=== PATIENT | female | born 1955 | race Caucasian/White ===

== ENCOUNTER 2017-04-23 09:24 | Inpatient (IN) ==
--- NOTE | 2017-04-22 21:52 | Discharge Summary ---
<UrbanoMehnaz mccrackenGrazyna L - Last Filed: 04/23/17 09:04> Date of Encounter: 04/23/17 - Discharge Diagnosis (1) Status post total knee replacement, right Priority: Primary Status: Acute (2) Arthritis of knee, right Priority: Primary Status: Acute (3) Chronic pain Priority: Secondary Status: Chronic Comments: Holding Percocet 10/325mg - takes TID - LD: 03/29/17 Qualifiers: Chronic pain type: other chronic pain Qualified Code(s): G89.29 - Other chronic pain (4) CKD (chronic kidney disease) stage 3, GFR 30-59 ml/min Priority: Secondary Status: Chronic (5) COPD (chronic obstructive pulmonary disease) Priority: Secondary Status: Chronic Qualifiers: COPD type: unspecified COPD Qualified Code(s): J44.9 - Chronic obstructive pulmonary disease, unspecified (6) DMII (diabetes mellitus, type 2) Priority: Secondary Status: Chronic Qualifiers: Diabetes mellitus complication status: without complication Diabetes mellitus terminal worker insulin use: unspecified penitentiary insulin use status Qualified Code(s): E11.9 - Type 2 diabetes mellitus without complications (7) HTN (hypertension) Priority: Secondary Status: Chronic Qualifiers: Hypertension type: essential hypertension Qualified Code(s): I10 - Essential (primary) hypertension (8) Obesity Priority: Secondary Status: Chronic Qualifiers: Obesity type: due to excess calories Obesity classification: unspecified obesity classification Serious obesity comorbidity presence: without serious comorbidity Qualified Code(s): E66.09 - Other obesity due to excess calories - Hospital Course Hospital course: Ms. Mclaughlin is a 61 year old female - Time Spent with Patient Total time spent providing and/or coordinating discharge services: - Discharge Medications Home Medications: OxyCODONE Immed Rel [Roxicodone 5 MG] 5 mg PO Q6HR PRN 7 Days #28 tablet [Rx] Albuterol Sulfate [Albuterol Inhaler] 2 puff IH Q4-6H PRN 04/23/17 [History] Aspirin Enteric Coated [Aspirin EC] 325 mg PO BID #20 tablet. 04/23/17 [Rx] Calcium Carbonate [Calcium] 600 mg PO DAILY 04/23/17 [History] Cholecalciferol (Vitamin D3) [Vitamin D3] 2,000 unit PO DAILY 04/23/17 [History] Fluticasone Propionate Nasal [Flonase] 2 spr NS DAILY PRN 04/23/17 [History] Montelukast [Singulair] 10 mg PO HS 04/23/17 [History] [place]-3S/Dha/Epa/Fish Oil [Fish Oil 1,200 mg Softgel] 1 cap PO DAILY 04/23/17 [ History] OxyCODONE/APAP 10/325 [Percocet 10/325 MG] 1 tab PO Q8H PRN 04/23/17 [History] Pantoprazole Sodium [Protonix] 40 mg PO DAILY 04/23/17 [History] Psyllium [Metamucil Fiber Singles Packet] 1 pack PO DAILY 04/23/17 [History] Sertraline [Zoloft] 100 mg PO DAILY 04/23/17 [History] Simvastatin [Zocor] 40 mg PO DAILY 04/23/17 [History] Tiotropium [Spiriva] 18 mcg PO DAILY 04/23/17 [History] Venlafaxine HCl [Venlafaxine HCl ER] 75 mg PO DAILY 04/23/17 [History] Vitamin B Complex Vit C No.4 [Super B Complex] 150 mg PO DAILY 04/23/17 [History ] diazePAM [Valium] 5 mg PO BID PRN 04/23/17 [History] Allergies/Adverse Reactions: 3 Allergy/AdvReac Type Severity Reaction Status Date / Time cephalexin Allergy Rash Verified 04/23/17 10:10 Penicillins [PCN] Allergy Rash Verified 04/23/17 10:10 Sulfa (Sulfonamide Allergy Rash Verified 04/23/17 10:10 Antibiotics) hydrocodone [From Vicodin] AdvReac Hallucinati Verified 04/23/17 10:10 ng Varenicline [From Chantix] AdvReac Gastrointestinal Verified 04/23/17 10:10 Upset Primary care physician: Adam Evans CNP - Patient Status Disposition: Home Health Service Condition: Good - Discharge Instructions Follow Up With: Adam Evans CNP [Primary Care Provider] - <Sharan Lakhani - Last Filed: 04/25/17 06:45> Date of Encounter: 04/25/17 Time of Encounter: 06:44 - Discharge Diagnosis (1) Morbid obesity with BMI of 40.0-44.9, adult Priority: Secondary Status: Chronic (2) Chronic pain Priority: Secondary Status: Chronic Qualifiers: Chronic pain type: other chronic pain Qualified Code(s): G89.29 - Other chronic pain (3) CKD (chronic kidney disease) stage 3, GFR 30-59 ml/min Priority: Secondary Status: Chronic (4) COPD (chronic obstructive pulmonary disease) Priority: Secondary Status: Chronic Qualifiers: COPD type: unspecified COPD Qualified Code(s): J44.9 - Chronic obstructive pulmonary disease, unspecified (5) DMII (diabetes mellitus, type 2) Priority: Secondary Status: Chronic Qualifiers: Diabetes mellitus complication status: without complication Diabetes mellitus terminal worker insulin use: unspecified penitentiary insulin use status Qualified Code(s): E11.9 - Type 2 diabetes mellitus without complications (6) HTN (hypertension) Priority: Secondary Status: Chronic Qualifiers: Hypertension type: essential hypertension Qualified Code(s): I10 - Essential (primary) hypertension (7) Loose total knee arthroplasty Priority: Secondary Status: Chronic Comments: Medial unicondylar right Qualifiers: Encounter type: subsequent encounter Qualified Code(s): T84.038D - Mechanical loosening of other internal prosthetic joint, subsequent encounter; Z96.659 - Presence of unspecified artificial knee joint; Z96.659 - Presence of unspecified artificial knee joint (8) Arthritis of knee, right Priority: Primary Status: Chronic - Hospital Course Hospital course: Ms. Mclaughlin is a 61 year old female Status post revision total knee replacement Patient with some postoperative hypertension doing well, The patient had an uneventful postoperative course. They received antibiotics and physical therapy and were discharged in stable condition. There will follow -up in the office in 2 weeks. - Time Spent with Patient Total time spent providing and/or coordinating discharge services: Primary care physician: Adam Evans CNP - Patient Status Functional capacity at discharge: uses cane/walker Overall status at discharge: patient is progressing back to baseline
--- NOTE | 2017-04-23 09:42 | History & Physical Report ---
Date of Encounter: 04/23/17 Time of Encounter: 09:42 24 Hour HP Update - Instructions Instructions: If the History and Physical is less than 30 days old and was completed prior to A.M. admission and or procedure and has NOT been updated on calendar day of procedure please complete this update prior to performing procedure. - Update Patient reports changes in Medical Condition: No Changes in examination, assessment, or condition: No Changes in Medication: No Preop tests/diagnostics Reviewed: Yes Surgery Remains Indicated: Yes Consent for Planned Operative Procedure(s) Verified: Yes - Pre-Operative Checklist Preoperative Checklist Indicated: No Prophylactic Antibiotic Ordered: Yes Is VTE Prophylaxis Indicated?: Yes
[2017-04-23] MEDS ORDERED: Ketorolac 30 MG/ML VIAL ONE (09:43)
[2017-04-23] MEDS ORDERED: *HR* Midazolam HCl 2 MG/2 ML VIAL ONE (09:43)
[2017-04-23] MEDS ORDERED: Lidocaine -MPF 2% 2 ML VIAL ONE (09:43)
[2017-04-23] MEDS ORDERED: *HR* Propofol 200 MG/20 ML VIAL IVP ONE (09:43)
[2017-04-23] MEDS ORDERED: Propofol 500 MG/50 ML INFUS..BTL ONE (09:43)
[2017-04-23] MEDS ORDERED: *HR* FentaNYL (PF) 100 MCG/2 ML VIAL ONE ×2 (09:43)
[2017-04-23] MEDS ORDERED: Clindamycin 900 MG/50 ML 900 MG/50 ML IV.SOLN IVPB ONE (09:46)
[2017-04-23] MEDS ORDERED: Albuterol 2.5 MG/3 ML NEBULIZER IH ONE (09:46)
[2017-04-23] MEDS ORDERED: Plasma-Lyte A (PH 7.4) 1,000 ML IVC SCH (10:00)
--- NOTE | 2017-04-23 10:03 | Anesthesia Evaluation PreOp ---
Date of Encounter: 04/23/17 Time of Encounter: 10:01 - Past History Planned Operation: R TKA revision unicondylar to total Cardiac History: HTN Pulmonary History: COPD (not on O2, no recent exacerbations), ADAIR Dx (does not use CPAP due to claustrophobia) Other Medical History: Renal (CKD III), Diabetes Type II Anesthesia History: No Prior Anesthetic Complications, Past Anesthesia (RTKA, hysterectomy, lumpectomy, CTR, ulnar nn transposition) Alcohol Use: none Drug use: none Medications and Allergies OxyCODONE Immed Rel [Roxicodone 5 MG] 5 mg PO Q6HR PRN 7 Days #28 tablet [Rx] Aspirin Enteric Coated [Aspirin EC] 325 mg PO BID #20 tablet. 04/23/17 [Rx] 3 Allergy/AdvReac Type Severity Reaction Status Date / Time cephalexin Allergy Rash Verified 04/23/17 10:10 Penicillins [PCN] Allergy Rash Verified 04/23/17 10:10 Sulfa (Sulfonamide Allergy Rash Verified 04/23/17 10:10 Antibiotics) hydrocodone [From Vicodin] AdvReac Hallucinati Verified 04/23/17 10:10 ng Varenicline [From Chantix] AdvReac Gastrointestinal Verified 04/23/17 10:10 Upset - Meds/Allergy Pre-op Review Medications Reviewed: Yes Allergies Reviewed: Yes Beta Blockers on Current Med List: No Anesthesia Results - Labs Laboratory Tests 03/29/17 03/29/17 03/29/17 15:02 15:02 15:02 WBC 8.0 Hgb 13.2 Hct 41.3 Plt Count 305 PT INR APTT Sodium 141 Potassium 3.9 Chloride 103 Carbon Dioxide 26 BUN 16 Creatinine 1.04 Glucose 99 Est Mean Plasma Glucose 131 Hemoglobin A1c 6.2 H 04/09/17 12:39 WBC Hgb Hct Plt Count PT 11.9 INR 1.1 APTT 30.4 Sodium Potassium Chloride Carbon Dioxide BUN Creatinine Glucose Est Mean Plasma Glucose Hemoglobin A1c - Imaging EKG: report reviewed (SINUS RHYTHM NONSPECIFIC ST & T-WAVE ABNORMALITY Electronically Signed On 04-11-2017 9:05:58 EST by Juan Manuel Rizvi MD) Anesthesia Exam O2 Sat Height 1.65 m Height 1.65 m Height 1.65 m Weight 109.769 kg Weight 109.769 kg Weight 109.769 kg O2 Sat by Pulse Oximetry 93 O2 Sat by Pulse Oximetry 93 Vital Signs Temp Pulse Resp BP Pulse Ox 97.6 F 91 18 169/90 93 04/23/17 09:43 04/23/17 09:43 04/23/17 09:43 04/23/17 09:43 04/23/17 09:43 Height: 65" Weight: 242lbs NPO (# of Hours): >8 - HEENT Pupil (Motor): Pupils equal, EOMI Mallampati: III Teeth: Edentulous (upper) Denture Type: Upper: Complete, Lower: Partial Oral Opening: Greater than 3 - BINDER OPERATOR LOC: Oriented BINDER OPERATOR Motor: Normal RUE, Normal LUE, Normal RLE, Normal LLE, Normal Face BINDER OPERATOR Sensory: Normal: RUE, LUE, RLE, LLE, Face - Cardiac Rhythm: Regular - Pulmonary Breath Sounds: bilateral Clear Respiratory Effort: Symmetrical Anesthesia Assess/Plan ASA Score: 3 (HTN, COPD, stage II CKD, DM) Modified Keron Scale for Level of Consciousness: Cooperative, oriented, and tranquil Anesthetic Plan: General, Regional (Femoral nn block, pt refuses spinal) Monitoring Plan: Standard Monitors Recovery Plan: PACU
[2017-04-23] MEDS ORDERED: Ethanol\\Acetic Acid\\Na Ace\\Ben 1,000 ML IRRIG.SOLN IR ONE (10:06)
[2017-04-23] MEDS ORDERED: Acetaminophen IV 1,000 MG/100 ML INFUS..BTL IVPB ONE (10:17)
[2017-04-23] MEDS ORDERED: Lidocaine/EPI 1:100k 1% 20 ML VIAL ONE (10:36)
[2017-04-23] MEDS ORDERED: *HR* Ropivacaine/PF 0.5% 20 ML VIAL ONE (10:36)
[2017-04-23] MEDS ORDERED: Ketamine *HR* 500 MG/10 ML MDV ONE (11:45)
[2017-04-23] MEDS ORDERED: Dexamethasone 4 MG/ML VIAL ONE (12:01)
[2017-04-23] MEDS ORDERED: Ondansetron 4 MG/2 ML VIAL ONE (12:01)
--- NOTE | 2017-04-23 12:08 | Anesthesia Procedures ---
Date of Encounter: 04/23/17 Time of Encounter: 11:00 Procedures: Anesthesia - Nerve Block Procedure Date: 04/23/17 Time: 11:00 Allergies/Adv Reactions: MULTIPLE SEE CHART Pre-op Diagnosis: RIGHT KNEE ARTHRITIS Surgical Procedure: RIGHT KNEE ARTHROPLASTY Checklist: Correct Patient Identifier, Correct procedure, History checked Correct side: Right Blood Thinner: No Monitor Applied: EKG, BP, Pulse Oximetry Supplemental Oxygen via Nasal Cannula (L/min): 2 Sedation: Versed (mg): 2 Sedation: Fentanyl (mcg): 100 Indication: Post Op Analgesia Pre-op Neuro Deficits: No Block Type: Femoral (IPACK ) Catheter placed: No Sterile Technique: Yes Ultrasound used: Yes Anatomy identified: Yes Visual spread of Local: Yes Neuro Stimulation: Yes Nerve Stimulator Range: 0.2 - 0.4 mA Blood on Needle Aspiration: No Smooth Injection of Local: Yes Pain with Injection of Local: No Prep: Chlorhexadine Needle: 22 x 50 mm Stimuplex, 21 x 100 mm Stimuplex Local: Ropivacaine (0.5% WITH 8MG DECADRON FEMORAL 30ML ), Other (BUPIV 0.25% 30ML WITH 8MG DECADRON ) Volume (cc): 60 Number of Attempts: 1 Complications: None/effective block Vitals: Vital Signs - Last 8 Hours Temp Pulse Resp BP Pulse Ox 04/23/17 11:31 100 18 149/81 96 04/23/17 11:20 95 18 148/86 95 04/23/17 11:05 97 20 155/94 96 04/23/17 10:50 90 20 160/91 95 04/23/17 09:49 97.6 F 91 18 169/90 93 04/23/17 09:43 97.6 F 91 18 169/90 93 Intake and Output 04/22/17 04/23/17 04/23/17 23:59 07:59 15:59 Other: Weight 109.769 kg Patient Weight 04/23/17 23:59 Weight 109.769 kg Comments: PER DR. MCCLELLAN REQUEST
[2017-04-23] MEDS ORDERED: *HR* Promethazine 25 MG/ML VIAL IVP PRN (12:09)
[2017-04-23] MEDS ORDERED: *HR* HYDROmorphone (PF) 1 MG/ML SYRINGE IVP PRN (12:09)
[2017-04-23] MEDS ORDERED: MORPHINE SUL Oral CONC 10 MG/0.5 ML ORAL.SYG SL PRN (12:09)
--- NOTE | 2017-04-23 12:19 | Orthopedic Operative Note ---
Date of procedure: 04/23/17 Pre-op diagnosis: Right knee arthritis/loose unicondylar knee replacement Post-op diagnosis: same Procedure: Procedure: Right Removal of unicondylar knee replacement right revision total knee replacement Estimated blood loss: 500 cc Hardware: Arthrex metal and plastic replacement: Femur 5, tibia: 6, poly-: PS 18 , patella: 34 Exam Under anesthesia: Full range of motion and no gross instability. Procedural Notes: Grade 3 arthritic changes patellofemoral joint lateral compartment. Loose unicondylar knee replacement Operative procedure: The patient was brought to the operating room and placed on the operating room table. After general anesthesia was administered the operative knee was examined. Findings were noted in the exam under anesthesia. The operative extremity was prepped and draped in sterile surgical fashion. The patient received IV antibiotics prior to skin incision. A standard midline incision was made centered over the patella. The incision was made through the skin and subcutaneous tissue. It incorporated the old incision. A medial parapatellar tendon approach was performed. Care was taken to preserve tissue along the medial aspect of the patella. And to protect the patella tendon. The deep MCL was released off the medial tibia. The infra patella fat pad was excised. Cultures were obtained. The knee was brought into flexion the patient was noted to have grade 3 changes lateral compartment and patellofemoral joint. The patient and all poly-tibia, femoral component was removed it was very loose. The tibial component was also removed without significant bone loss is was also loose. The entry holes made for intramedullary femoral guide guide was seated in 5 degrees of valgus distal cut was made. ACL PCL lateral meniscus were removed and the entry hole was made for the intramedullary tibial guide guide was seated to resect at the level of the medial cut. The knee was brought into flexion femur sized to a size 5 cutting guide was seated anterior cut was made followed by the posterior condylar cuts followed by chamfer cuts. The finishing block was seated box cut was made lug holes drilled. Tibia was subluxed out sized to a size 6 for tray was seated in appropriate position prepared with the large drill followed by the fin cutter trial reduction revealed full extension no varus valgus instability with a 18PS [place]. The patella was everted patella cut was made all the insertions of the quadriceps and patella tendon patella sized to 34, 34 guide was seated lug holes are drilled. The trial components were removed. The knee is irrigated with pulse irrigation. Tibia cemented first followed by the femur the 18 PS [place] was seated and secured, the knee was brought into extension patella was cemented and held in place with patellar holding clamp. After the cement hardened the knee was irrigated out again after it sat for 1 minutes with a antibacterial solution. The knee was closed by the PA. The extensor mechanism was closed with a running #2 Fiberwire suture and a running # 2 PDS suture. The deep tissue was irrigated and closed deep with #1 PDS suture superficially with 0 PDS suture. The skin was closed with skin jennifer. The patient was placed in a sterile dressing and postoperative brace. They were extubated and transferred to recovery room in stable condition. Anesthesia: GETA Surgeon: Sharan Lakhani Was there an medical support assistant present: Yes Principal Secretary: Grazyna Varma Estimated blood loss (cc): 500 Condition: stable Disposition: PACU
[2017-04-23] MEDS ORDERED: MOM Conc 10 ML UD.LIQ PO PRN (13:35)
[2017-04-23] MEDS ORDERED: Naloxone 0.4 MG/ML INJ IVP PRN (13:35)
[2017-04-23] MEDS ORDERED: Dextrose Gel 15 GM/37.5 ML TUBE PO PRN ×2 (13:35)
[2017-04-23] MEDS ORDERED: diazePAM 5 MG TABLET PO PRN (13:35)
[2017-04-23] MEDS ORDERED: Temazepam 15 MG CAPSULE PO PRN (13:35)
[2017-04-23] MEDS ORDERED: D5% in Water 1,000 ML IVC PRN (13:35)
[2017-04-23] MEDS ORDERED: *HR* Dextrose 50 % in Water (Syg) 50 ML SYRINGE IVP PRN (13:35)
[2017-04-23] MEDS ORDERED: Sennosides 8.6 MG TABLET PO PRN (13:35)
[2017-04-23] MEDS ORDERED: Fluticasone Propionate Nasal 50 MCG/SPRAY BOTTLE NS PRN (13:35)
[2017-04-23] MEDS ORDERED: Ondansetron 4 MG/2 ML VIAL IVP PRN (13:35)
[2017-04-23 14:01] LABS: Hematocrit 38.2 % (35.3-44.9)
--- NOTE | 2017-04-23 14:47 | Anesthesia Evaluation Post Op ---
Date of Encounter: 04/23/17 Time of Encounter: 13:15 - Vital Signs Vital Signs: Vital Signs/O2 Sat, Most Current Temp Pulse Resp BP Pulse Ox 98 F 90 16 147/98 98 04/23/17 14:42 04/23/17 14:42 04/23/17 14:42 04/23/17 14:42 04/23/17 14:42 - Lungs Lungs: Clear Ascult./Percussion - Airway Airway: Non-obstructed - Cardiovascular Regular Rate - Mental Status Mental Status: Alert & Oriented, Answers Appropriately - Pain Pain Scale: 2 Pain Scale used: Numeric (1 - 10) - Nausea Vomiting Nausea Vomiting: Not Present - Hydration Hydration: Ice chips - Discharge PostOp Status: Transfer Patient to floor
[2017-04-23] MEDS ORDERED: *HR* Enoxaparin 30 MG/0.3 ML SYRINGE SQ SCH (18:00)
[2017-04-23] MEDS: *HR* Enoxaparin 30 MG/0.3 ML SYRINGE SQ SCH (19:40)
[2017-04-23] MEDS: Insulin LISPRO 300 UNITS/3 ML VIAL SQ SCH ×2 (19:40→20:50)
[2017-04-23] MEDS: Ringers Solution, Lactated 1,000 ML IVC SCH (20:39)
[2017-04-23] MEDS: *HR* OxyCODONE Immed Rel 5 MG TABLET PO PRN (20:40)
[2017-04-23] MEDS: Clindamycin 900 MG/50 ML 900 MG/50 ML IV.SOLN IVPB SCH (20:40)
[2017-04-24] MEDS: *HR* OxyCODONE Immed Rel 5 MG TABLET PO PRN ×5 (04:54→22:08)
[2017-04-24 05:03] LABS: Hematocrit 32.5 % (35.3-44.9)
[2017-04-24 05:08] LABS: Hemoglobin 10.4 g/dL (11.5-15.4)
[2017-04-24] MEDS: Clindamycin 900 MG/50 ML 900 MG/50 ML IV.SOLN IVPB SCH (05:15)
[2017-04-24 05:22] LABS: Calcium 9.1 mg/dL (8.6-10.3); Potassium 4.9 mEq/L (3.5-5.1)
--- NOTE | 2017-04-24 06:24 | Orthopedics Progress Note ---
Date of Encounter: 04/24/17 Time of Encounter: 06:23 - Assessment and Plan (1) Morbid obesity with BMI of 40.0-44.9, adult Current Visit: Yes Status: Chronic (2) Chronic pain Current Visit: No Status: Chronic Qualifiers: Chronic pain type: other chronic pain Qualified Code(s): G89.29 - Other chronic pain (3) CKD (chronic kidney disease) stage 3, GFR 30-59 ml/min Current Visit: No Status: Chronic (4) COPD (chronic obstructive pulmonary disease) Current Visit: No Status: Chronic Qualifiers: COPD type: unspecified COPD Qualified Code(s): J44.9 - Chronic obstructive pulmonary disease, unspecified (5) DMII (diabetes mellitus, type 2) Current Visit: No Status: Chronic Qualifiers: Diabetes mellitus complication status: without complication Diabetes mellitus long-term insulin use: unspecified terminal block assembler insulin use status Qualified Code(s): E11.9 - Type 2 diabetes mellitus without complications (6) HTN (hypertension) Current Visit: No Status: Chronic Qualifiers: Hypertension type: essential hypertension Qualified Code(s): I10 - Essential (primary) hypertension (7) Loose total knee arthroplasty Current Visit: Yes Status: Chronic Qualifiers: Encounter type: subsequent encounter Qualified Code(s): T84.038D - Mechanical loosening of other internal prosthetic joint, subsequent encounter; Z96.659 - Presence of unspecified artificial knee joint; Z96.659 - Presence of unspecified artificial knee joint (8) Arthritis of knee, right Current Visit: No Status: Chronic Subjective Interval history: Patient was seen this morning doing well without complaints. Afebrile vital signs stable. Operative extremity: Neurovascularly intact Dressing clean dry and intact Calves nontender Assessment and plan: Continue with postoperative care Hematocrit 32 Objective Vital signs: Vital Signs Temp Pulse Resp BP Pulse Ox 04/24/17 03:45 97.7 F 85 18 135/80 97 04/24/17 00:15 97.4 F L 88 18 138/78 97 04/23/17 20:06 97.6 F 86 18 132/79 97 04/23/17 16:00 98.7 F 91 18 138/84 95 04/23/17 14:42 98 F 90 16 147/98 98 04/23/17 13:54 97 F L 90 16 151/71 95 04/23/17 13:49 93 04/23/17 13:35 97.2 F L 106 16 149/84 95 04/23/17 13:21 97.9 F 110 16 153/90 94 04/23/17 13:11 115 16 144/84 94 04/23/17 13:01 119 14 148/86 94 04/23/17 12:51 97 F L 115 16 144/88 90 04/23/17 11:31 100 18 149/81 96 04/23/17 11:20 95 18 148/86 95 04/23/17 11:05 97 20 155/94 96 04/23/17 10:50 90 20 160/91 95 04/23/17 09:49 97.6 F 91 18 169/90 93 04/23/17 09:43 97.6 F 91 18 169/90 93 Intake and Output 04/23/17 04/23/17 04/24/17 15:59 23:59 07:59 Intake Total 490 / 490 Output Total 500 / 500 300 / 300 1300 / 1300 Balance -500 / -500 190 / 190 -1300 / -1300 Intake: IV Fluids 50 / 50 Cleocin Premix 900 MG/50 ML 900 50 / 50 mg In 50 ml @ 50 mls/hr IVPB Q8H [facility] Rx#:[id number] Oral 440 / 440 Output: Urine 300 / 300 1300 / 1300 Estimated Blood Loss 500 / 500 Other: Meal Dinner Percent of Meal Consumed 75% Weight 109.769 kg Blood Glucose* 125 264 - Labs CBC & BMP: 04/24/17 04:47 04/24/17 04:47 Labs: Abnormal lab results Hgb 10.4 g/dL (11.5-15.4) L D 04/24/17 04:47 Hct 32.5 % (35.3-44.9) L 04/24/17 04:47 BUN 26 mg/dL (8-23) H 04/24/17 04:47 Creatinine 1.22 mg/dL (0.60-1.20) H 04/24/17 04:47 Est GFR ( Amer) 54 (> 60) L 04/24/17 04:47 Est GFR (Non-Af Amer) 45 (> 60) L 04/24/17 04:47 Glucose 196 mg/dL (70-105) H 04/24/17 04:47 POC Glucose 264 (58-89) H 04/23/17 20:02 - VTE Documentation of Mechanical Device: Venous foot pump, device Consult Discharge Plan - Plan Referrals: Adam Evans CNP [Primary Care Provider] -
[2017-04-24] MEDS: Venlafaxine XR (24 HR) 75 MG CAP.ER.24H PO SCH (07:38)
[2017-04-24] MEDS: Vitamin B Complex/Vit C/Vit E 1 EACH TABLET PO SCH (07:38)
[2017-04-24] MEDS: Insulin LISPRO 300 UNITS/3 ML VIAL SQ SCH ×4 (07:38→22:23)
[2017-04-24] MEDS: *HR* Enoxaparin 30 MG/0.3 ML SYRINGE SQ SCH ×2 (07:39→17:56)
[2017-04-24] MEDS: Cholecalciferol (D-3) 1,000 UNIT TABLET PO SCH (07:39)
[2017-04-24] MEDS: Tiotropium 18 MCG inhalation IH SCH (07:43)
--- NOTE | 2017-04-25 01:38 | Internal Medicine Consult Note ---
Date of Encounter: 04/25/17 Time of Encounter: 01:34 - Assessment and Plan (1) HTN (hypertension) Current Visit: No Status: Chronic Assessment and plan: 61/female Admitted for right removal of unicondylar knee replacement, right revision of total knee replacement. On today's of postoperative day 2. Patient has persistent pain in her lower extremity where the surgery was done. Patient claims that her pain is 10 out of 10. Patient received her oral pain medication around 1 hour ago but in spite of that patient has a persistent pain. Blood pressure readings as mentioned below. On examination: On a minimal movement of the leg which is operated: Patient is a persistent pain. Patient claims that she is not able to move the leg. Neurovascular intact. Assessment: Elevated/uncontrolled blood pressure likely secondary to underlying pain. Plan: We will start low dose captopril 6.25 mg 3 times a day. This is a short acting antihypertensive to treat the elevated blood pressure. I do not want to start her on a long-acting antihypertensives as the etiology for elevated blood pressure is underlying persistent pain. More aggressive pain control to get the blood pressure under control. I discussed with orthopedic surgery wedding transportation driver for possible intravenous pain medication if needed. At the time of dictation noted that patient's blood pressure is downward trending and patient is comfortably sleeping. Qualifiers: Hypertension type: essential hypertension Qualified Code(s): I10 - Essential (primary) hypertension (2) Arthritis of knee, right Current Visit: No Status: Chronic Assessment and plan: Please see evaluation and management by primary team (3) Obesity Current Visit: No Status: Chronic Assessment and plan: Patient may get benefit from outpatient bariatric surgery evaluation Qualifiers: Obesity type: due to excess calories Obesity classification: unspecified obesity classification Serious obesity comorbidity presence: without serious comorbidity Qualified Code(s): E66.09 - Other obesity due to excess calories Internal Medicine - CN: HPI - Data of Consult Patient: new to practice Consult date: 04/25/17 Requesting Physician: Sharan Lakhani MD - Consult Narrative Reason for consult: Elevated blood pressure. History of present illness: PCP:Adam Seals PMH: Hypertension, diabetes, COPD, hyperlipidemia, anxiety, insomnia, sleep apnea using CPAP, History of present medical illness:Ms. Mclaughlin is a 61 year old female who recently underwent a right removal of unicondylar knee replacement, right revision of total knee replacement. Today is postoperative day 2. Postoperatively patient has persistent pain and it was noted that patient's blood pressure for the past 12 hours was persistently elevated. Multiple readings were suggested that patient's blood pressure was in the high 180s to high 200s systolic.Patient's diastolic blood pressure was in high 90s to low 100s. I received a call from orthopedics surgery wedding transportation driver regarding blood pressure management. Reason for internal medicine consult: Persistently elevated blood pressure. Past Med Surg Social Fam HX - Past Medical History Medical history: COPD, GERD, hyperlipidemia, hypertension Psychiatric history: anxiety, depression - Past Surgical History Surgical History: hysterectomy, knee replacement - Social History Smoking Status: Former smoker Alcohol use: none Drug use: none - Family History Mother Hx Family Cardiac Disorders: Yes Father Hx Family Cardiac Disorders: Yes Review of systems: A 10 point review of systems were done. Patient has persistent knee joint pain. Patient has difficulty in moving her lower extremity. Patient denies cough, chest pain, nausea, vomiting, headache, dizziness, diarrhea. - Constitutional Constitutional: as per HPI Internal Medicine - CN: Meds OxyCODONE Immed Rel [Roxicodone 5 MG] 5 mg PO Q6HR PRN 7 Days #28 tablet [Rx] Albuterol Sulfate [Albuterol Inhaler] 2 puff IH Q4-6H PRN 04/23/17 [History] Aspirin Enteric Coated [Aspirin EC] 325 mg PO BID #20 tablet. 04/23/17 [Rx] Calcium Carbonate [Calcium] 600 mg PO DAILY 04/23/17 [History] Cholecalciferol (Vitamin D3) [Vitamin D3] 2,000 unit PO DAILY 04/23/17 [History] Fluticasone Propionate Nasal [Flonase] 2 spr NS DAILY PRN 04/23/17 [History] Montelukast [Singulair] 10 mg PO HS 04/23/17 [History] [place]-3S/Dha/Epa/Fish Oil [Fish Oil 1,200 mg Softgel] 1 cap PO DAILY 04/23/17 [ History] OxyCODONE/APAP 10/325 [Percocet 10/325 MG] 1 tab PO Q8H PRN 04/23/17 [History] Pantoprazole Sodium [Protonix] 40 mg PO DAILY 04/23/17 [History] Psyllium [Metamucil Fiber Singles Packet] 1 pack PO DAILY 04/23/17 [History] Sertraline [Zoloft] 100 mg PO DAILY 04/23/17 [History] Simvastatin [Zocor] 40 mg PO DAILY 04/23/17 [History] Tiotropium [Spiriva] 18 mcg PO DAILY 04/23/17 [History] Venlafaxine HCl [Venlafaxine HCl ER] 75 mg PO DAILY 04/23/17 [History] Vitamin B Complex Vit C No.4 [Super B Complex] 150 mg PO DAILY 04/23/17 [History ] diazePAM [Valium] 5 mg PO BID PRN 04/23/17 [History] 3 Allergy/AdvReac Type Severity Reaction Status Date / Time cephalexin Allergy Rash Verified 04/23/17 10:10 Penicillins [PCN] Allergy Rash Verified 04/23/17 10:10 Sulfa (Sulfonamide Allergy Rash Verified 04/23/17 10:10 Antibiotics) hydrocodone [From Vicodin] AdvReac Hallucinati Verified 04/23/17 10:10 ng Varenicline [From Chantix] AdvReac Gastrointestinal Verified 04/23/17 10:10 Upset Internal Medicine - CN: Exam - Constitutional Vitals: Temp Pulse Resp BP Pulse Ox 97.4 F L 98 24 179/105 93 04/24/17 22:16 04/24/17 22:16 04/24/17 22:16 04/24/17 22:16 04/24/17 22:16 General appearance IM: Present: A&O X 3, pleasant, no acute distress, answers questions appropriately - Respiratory Respiratory exam: Present: CTAB - Cardiovascular Cardiovascular exam IM: Present: RRR - Extremities Exam Additional comments: Noted retrosternal has a persistent pain in the extremity where she has a recent surgery done. Internal Medicine - CN: Reslt - Labs CBC & Chem 7: 04/24/17 04:47 04/24/17 04:47 Labs: Short CBC 04/24/17 Range/Units 04:47 Hgb 10.4 L D (11.5-15.4) g/dL Hct 32.5 L (35.3-44.9) % BMP 04/24/17 04:47 Sodium 138 Potassium 4.9 Chloride 104 Carbon Dioxide 25 BUN 26 H Creatinine 1.22 H Glucose 196 H Calcium 9.1 - Impressions Impressions Chest X-Ray 04/24/17 22:05 IMPRESSION: No evidence of acute cardiopulmonary disease. D/ / Stef Clayton MD / Stef Clayton MD Interpreting Provider: Stef Clayton MD Consult Discharge Plan - Plan Referrals: Adam Evans CNP [Primary Care Provider] -
[2017-04-25 01:56] LABS: Hematocrit 32.8 % (35.3-44.9); Hemoglobin 10.2 g/dL (11.5-15.4)
[2017-04-25 02:27] LABS: BUN/Creatinine Ratio 24 (6-26); Blood Urea Nitrogen 26 mg/dL (8-23); Calcium 9.2 mg/dL (8.6-10.3); Carbon Dioxide 27 mEq/L (23-29); Chloride 100 mEq/L (98-107); Glucose 164 mg/dL (70-105); Osmolality,Calculated 292 (280-300); Potassium 4.2 mEq/L (3.5-5.1); Sodium 137 mEq/L (136-145); eGFR For Non-African Americans 52 (> 60)
[2017-04-25] MEDS: *HR* OxyCODONE Immed Rel 5 MG TABLET PO PRN ×4 (03:57→22:39)
[2017-04-25] MEDS: Tiotropium 18 MCG inhalation IH SCH (07:47)
--- NOTE | 2017-04-25 08:17 | Event Note ---
Date of Encounter: 04/25/17 Time of Encounter: 07:40 I spoke with Charge nurse this AM regarding patients elevated BP. She chronically has HTN, DMII, and CKD (III) - she takes no BP medication at home. Hospitalist consulted 1AM - started Captopril 6.25 TID. BP remains elevated, nurse to notify hospitalist again for further medication management. Starting Nicotine patch, patient is a smoker. Encouraged hydration. Still optimizing pain control - Lidocaine patch added, unable to add NSAIDS secondary to elevated BP. Can add low dose Gabapentin 300mg BID as well if needed. Doppler for R LE ordered. CXR reviewed - no abn noted. Planned D/C today if BP improves.
[2017-04-25] MEDS: Insulin LISPRO 300 UNITS/3 ML VIAL SQ SCH ×5 (08:26→20:42)
[2017-04-25] MEDS: Vitamin B Complex/Vit C/Vit E 1 EACH TABLET PO SCH (08:29)
[2017-04-25] MEDS: Venlafaxine XR (24 HR) 75 MG CAP.ER.24H PO SCH (08:30)
[2017-04-25] MEDS: Cholecalciferol (D-3) 1,000 UNIT TABLET PO SCH (08:31)
[2017-04-25] MEDS: *HR* Enoxaparin 30 MG/0.3 ML SYRINGE SQ SCH ×2 (08:41→16:44)
[2017-04-25] MEDS: Nicotine 21 MG PATCH.TD24 TD SCH (08:42)
[2017-04-25] MEDS: Ringers Solution, Lactated 1,000 ML IVC SCH ×2 (09:42→22:37)
--- NOTE | 2017-04-25 10:43 | Internal Med Progress Note ---
<Artis Ward - Last Filed: 04/25/17 11:19> Date of Encounter: 04/25/17 Time of Encounter: 10:39 - Assessment and plan (1) HTN (hypertension) Current Visit: Yes Status: Chronic Assessment and plan: Internal medicine was consulted for hypertension management Discontinue captopril and switch to hydralazine 10mg PO four times a day. Patient has remained hypertensive in the 180s. We gave her 1 time dose of 20 mg of hydralazine. The patient's blood pressure has improved Qualifiers: Hypertension type: essential hypertension Qualified Code(s): I10 - Essential (primary) hypertension (2) Status post total knee replacement, right Current Visit: Yes Status: Acute Assessment and plan: Status post unicondylar knee replacement, right revision of total knee replacement Being managed by orthopedics (3) Arthritis of knee, right Current Visit: Yes Status: Chronic Assessment and plan: Management by primary team orthopedics. (4) Obesity Current Visit: No Status: Chronic Assessment and plan: Lifestyle modifications Qualifiers: Obesity type: due to excess calories Obesity classification: unspecified obesity classification Serious obesity comorbidity presence: without serious comorbidity Qualified Code(s): E66.09 - Other obesity due to excess calories - Subjective Interval history: Patient states that she just is not feeling very well today. She states that she has felt like this before when she has had an upper respiratory infection. Patient denies any chest pain, shortness of breath, cough or any oxygen use at home. Patient states that she is still having a significant amount of pain after having her right knee surgery. - Constitutional Vitals: Temp Pulse Resp BP Pulse Ox 98.7 F 85 23 180/102 97 04/25/17 09:35 04/25/17 09:35 04/25/17 09:52 04/25/17 09:52 04/25/17 09:52 General appearance: Present: A&O X 3, pleasant, no acute distress, answers questions appropriately - Head Head exam: Present: atraumatic, normocephalic - Neck Neck exam general surgery: Present: full ROM, normal inspection, trachea midline - Respiratory Respiratory exam: Present: CTAB. Absent: accessory muscle use, rales, rhonchi, wheezes - Cardiovascular Cardiovascular exam: Present: RRR, +S1, +S2. Absent: diastolic murmur, gallop, rubs, systolic murmur - GI/Abdominal GI/Abdominal exam: Present: normal bowel sounds, soft, no peritoneal signs. Absent: distended, tenderness - Extremities Exam Additional comments: Patient has surgical dressing on right knee after having a knee surgery approximately 2 days ago. - Neurological Exam Neurological exam: Present: alert, oriented X3, no focal deficits. Absent: facial droop, speech deficit - Psychiatric Psychiatric exam: Present: normal affect, normal mood - Skin Skin exam: Present: dry, intact, warm Additional comments: Surgical dressing over the right knee Internal Medicine: Result - Labs CBC & Chem 7: 04/25/17 01:45 04/25/17 01:45 Labs: Short CBC 04/25/17 Range/Units 01:45 Hgb 10.2 L (11.5-15.4) g/dL Hct 32.8 L (35.3-44.9) % BMP 04/25/17 01:45 Sodium 137 Potassium 4.2 Chloride 100 Carbon Dioxide 27 BUN 26 H Creatinine 1.08 Glucose 164 H Calcium 9.2 - Impressions Impressions Chest X-Ray 04/24/17 22:05 IMPRESSION: No evidence of acute cardiopulmonary disease. D/ / Stef Clayton MD / Stef Clayton MD Interpreting Provider: Stef Clayton MD - VTE Documentation of Mechanical Device: Venous foot pump, device Consult Discharge Plan - Plan Referrals: Adam Evans PRODUCT MARKETING PROGRAMS MANAGER [Primary Care Provider] - <Isma Espinoza H - Last Filed: 04/25/17 11:29> Date of Encounter: 04/25/17 - Constitutional Vitals: Temp Pulse Resp BP Pulse Ox 97.5 F L 98 18 145/82 97 04/25/17 10:59 04/25/17 10:59 04/25/17 10:59 04/25/17 10:59 04/25/17 10:59 Internal Medicine: Result - Labs CBC & Chem 7: 04/25/17 01:45 04/25/17 01:45 Labs: Short CBC 04/25/17 Range/Units 01:45 Hgb 10.2 L (11.5-15.4) g/dL Hct 32.8 L (35.3-44.9) % BMP 04/25/17 01:45 Sodium 137 Potassium 4.2 Chloride 100 Carbon Dioxide 27 BUN 26 H Creatinine 1.08 Glucose 164 H Calcium 9.2 - Impressions Impressions Chest X-Ray 04/24/17 22:05 IMPRESSION: No evidence of acute cardiopulmonary disease. D/ / Stef Clayton MD / Stef Clayton MD Interpreting Provider: Stef Clayton MD - Attending Attestation Hypertension likely related to pain Adjust pain medications if needed May increase hydralazine up to 25 mg oral 4 times a day if still not controlled with 10 mg I examined this patient and my medical decision-making was reviewed with the Resident Physician. I agree with the documented findings, disposition and treatment plan as described except to the extent set forth below.
[2017-04-25] MEDS ORDERED: *HR* OxyCODONE Immed Rel 5 MG TABLET PO ONE (11:45)
[2017-04-25] MEDS: hydrALAZINE 10 MG TABLET PO SCH ×3 (12:10→23:53)
--- NOTE | 2017-04-25 17:15 | Event Note ---
Date of Encounter: 04/24/17 Time of Encounter: 12:45 PCR- POD#1 R TKR revision from uni to total Lakhani 04/23/17 PCR - Patient seen at bedside. Pain control: Adequate Participating in PT. All questions and concerns addressed. Educated on use of incentive spirometer, ambulation, and hydration. Patient educated on post-operative restrictions and care. Addressed: Patient not desiring to go home now until , secondary to per patient not desiring to go home without her to help her to/from bathroom. Educated patient regarding therapy stating she is progressing well and nearly self sufficient. Patient persistent that she will not go home until . D/C plan: Home, likely Sunday, possibly
[2017-04-26] MEDS: *HR* OxyCODONE Immed Rel 5 MG TABLET PO PRN ×3 (05:19→14:39)
[2017-04-26] MEDS: hydrALAZINE 10 MG TABLET PO SCH (05:19)
[2017-04-26] MEDS: *HR* Enoxaparin 30 MG/0.3 ML SYRINGE SQ SCH (05:19)
[2017-04-26] MEDS ORDERED: Acetaminophen IV 1,000 MG/100 ML INFUS..BTL IVPB PRN (05:53)
[2017-04-26] MEDS: Tiotropium 18 MCG inhalation IH SCH (07:32)
[2017-04-26] MEDS: Venlafaxine XR (24 HR) 75 MG CAP.ER.24H PO SCH (08:38)
[2017-04-26] MEDS: Vitamin B Complex/Vit C/Vit E 1 EACH TABLET PO SCH (08:38)
[2017-04-26] MEDS: Cholecalciferol (D-3) 1,000 UNIT TABLET PO SCH (08:38)
[2017-04-26] MEDS: Insulin LISPRO 300 UNITS/3 ML VIAL SQ SCH ×2 (08:39→11:47)
[2017-04-26] MEDS: Nicotine 21 MG PATCH.TD24 TD SCH (08:39)
--- NOTE | 2017-04-26 08:54 | Internal Med Progress Note ---
<Artis Ward - Last Filed: 04/26/17 12:00> Date of Encounter: 04/26/17 Time of Encounter: 08:51 - Assessment and plan (1) HTN (hypertension) Current Visit: Yes Status: Chronic Assessment and plan: Internal medicine was consulted for hypertension management Hydralazine 25 mg 4 times a day. metoprolol 12.5mg bid Qualifiers: Hypertension type: essential hypertension Qualified Code(s): I10 - Essential (primary) hypertension (2) Status post total knee replacement, right Current Visit: Yes Status: Acute Assessment and plan: Status post unicondylar knee replacement, right revision of total knee replacement Being managed by orthopedics (3) Arthritis of knee, right Current Visit: Yes Status: Chronic Assessment and plan: Management by primary team orthopedics. (4) Gout Current Visit: Yes Status: Suspected Assessment and plan: Patient will be started on prednisone for possible gout. Patient states that she has a history of gout and when it gets bad it affects her entire foot. Qualifiers: Gout site: foot Gout etiology: unspecified cause Chronicity: chronic Laterality: right Qualified Code(s): M1A.0710 - Idiopathic chronic gout, right ankle and foot, without tophus (tophi) (5) Obesity Current Visit: No Status: Chronic Assessment and plan: Lifestyle modifications Qualifiers: Obesity type: due to excess calories Obesity classification: unspecified obesity classification Serious obesity comorbidity presence: without serious comorbidity Qualified Code(s): E66.09 - Other obesity due to excess calories - Subjective Interval history: Patient states says that she is feeling well today and feels like she is able to be discharged. She states that she is still having pain in her right leg after the surgery. Patient states that she was told that she may have to go to a rehabilitation center. - Constitutional Vitals: Temp Pulse Resp BP Pulse Ox 98.0 F 105 16 157/88 96 04/26/17 06:57 04/26/17 06:57 04/26/17 07:34 04/26/17 06:57 04/26/17 07:34 General appearance: Present: A&O X 3, pleasant, no acute distress, answers questions appropriately - Head Head exam: Present: atraumatic, normocephalic - Neck Neck exam general surgery: Present: full ROM, normal inspection, trachea midline - Respiratory Respiratory exam: Present: wheezes (Mild wheeze bilaterally). Absent: accessory muscle use, rales, rhonchi - Cardiovascular Cardiovascular exam: Present: RRR, +S1, +S2. Absent: diastolic murmur, gallop, rubs, systolic murmur - GI/Abdominal GI/Abdominal exam: Present: normal bowel sounds, soft, no peritoneal signs. Absent: distended, tenderness - Extremities Exam Additional comments: Right knee is surgical dressing. - Neurological Exam Neurological exam: Present: alert, oriented X3, no focal deficits. Absent: facial droop, speech deficit - Psychiatric Psychiatric exam: Present: normal affect, normal mood - Skin Skin exam: Present: dry, intact, warm Additional comments: Surgical dressing on right knee from recent surgery. Internal Medicine: Result - Labs CBC & Chem 7: 04/25/17 01:45 04/25/17 01:45 - VTE Documentation of Mechanical Device: Venous foot pump, device Consult Discharge Plan - Plan Additional Instructions: Discharge Instructions: Total Knee Replacement Please call [facility] ([phone]), your Primary Care Physician, or report to the Emergency Room if you have any of the following symptoms: Nausea, vomiting, fever greater that 101.5, swelling, chest pain, shortness of breath, increased pain/redness/drainage/odor for your incision site, numbness/ tingling, or any other concerning symptoms. ACTIVITY:Weight-bearing as tolerated. You may progress off support (crutches or walker) as tolerated. MEDICATIONS: Upon discharge resume your home medications. Take all the medications as prescribed. Take a stool softener if taking narcotic pain medications. Stool softeners are only effective if you drink enough fluids. Drink 6-8 glass of water or fluids a day, unless this is not allowed for another health problem. Despite using stool softeners, if you haven't had a bowel movement in 3 days, please switch to a gentle laxative. Gentle laxatives are sold over the counter. You should have a bowel movement within 24 hours, if not call the office. You will be discharged from the hospital with a prescription for pain medication. You are encouraged to decrease the use of narcotic pain medication as tolerated. Should you require a refill, please call the office. [facility] prescribes narcotic pain medication for only 4-6 weeks after surgery. If you require pain medication beyond this time period, you may be referred to your Primary Care Physician or to the Pain Clinic for further evaluation. Plan ahead for refills on pain medication as many narcotics either need to be picked up at the office or mailed. It is best to call 48-72 hours in advance of needing a prescription refill so you don't run out of medication. To help control the post-operative pain, you may take NSAIDs (Aleve,Advil, Motrin, Ibuprofen, Naprosyn) or Tylenol as prescribed on the bottle in addition to the pain medication. ANTICOAGULATION (blood thinners): Continue your Aspirin, Lovenox or Coumadin as prescribed to help prevent a blood clot in the leg or in the lungs. As long as your incision remains dry and you tolerate the NSAIDs (Aleve, Advil, Motrin, ibuprofen, naprosyn), it is OK to use the NSAIDS while you are taking your anticoagulation medication. Should your incision start to drain, stop the NSAID and contact our office. Common symptoms of blood clot in the legs include: localized pain, swelling, calf tenderness, redness or discoloration of the skin. Blood clot in the lung symptoms include: shortness of breath, rapid pulse, sweating, and chest pain that worsens with deep breathing, coughing up blood, lightheadedness, feelings of anxiety. If you experience any of these symptoms notify your physician immediately, go to the emergency room, or if having trouble breathing, call 911. WOUND CARE: Leave the dressing on for 7 to 10days. You may change the dressing if it becomes saturated greater than 50%. Do not get the dressing wet at anytime. Wash your hands with antibacterial soap, rinse and dry prior to any wound care. If you have jennifer the visiting nurse or rehab facility can remove the stapes 10-14 days after surgery and place steri-strips across the wound. Leave the steri-strips in place until they fall off on their won. You may let water from the shower run on top of the steri-strips. If you do not have a visiting nurse or rehab facility, you will need to return to the office at 10-14 days for the jennifer to be removed. If you have itching or redness around the dressing call the office. FOLLOW-UP: Please follow up with your surgeon in the orthopedic clinic in 4 weeks from the day of surgery. If you have jennifer that need to be removed, you will need to come back to the office in 10-14 days from the day of surgery. Referrals: Adam Evans CNP [Primary Care Provider] - Prescriptions: hydrALAZINE [HydrALAZINE] 25 mg PO Q6HR #120 tablet predniSONE [PredniSONE] 20 mg PO DAILY #4 tablet <Isma Espinoza - Last Filed: 04/26/17 13:37> Date of Encounter: 04/26/17 - Constitutional Vitals: Temp Pulse Resp BP Pulse Ox 98.5 F 93 14 160/88 93 04/26/17 11:42 04/26/17 11:42 04/26/17 11:42 04/26/17 11:42 04/26/17 11:42 Internal Medicine: Result - Labs CBC & Chem 7: 04/25/17 01:45 04/25/17 01:45 - Attending Attestation Start prednisone for possible gout on the right greater toe Increase hydralazine dose Discharge in the morning if stable I examined this patient and my medical decision-making was reviewed with the Resident Physician. I agree with the documented findings, disposition and treatment plan as described except to the extent set forth below.
--- NOTE | 2017-04-26 09:06 | Orthopedics Progress Note ---
Date of Encounter: 04/26/17 Time of Encounter: 09:05 - Assessment and Plan (1) Morbid obesity with BMI of 40.0-44.9, adult Current Visit: Yes Status: Chronic (2) Chronic pain Current Visit: No Status: Chronic Qualifiers: Chronic pain type: other chronic pain Qualified Code(s): G89.29 - Other chronic pain (3) CKD (chronic kidney disease) stage 3, GFR 30-59 ml/min Current Visit: No Status: Chronic (4) COPD (chronic obstructive pulmonary disease) Current Visit: No Status: Chronic Qualifiers: COPD type: unspecified COPD Qualified Code(s): J44.9 - Chronic obstructive pulmonary disease, unspecified (5) DMII (diabetes mellitus, type 2) Current Visit: No Status: Chronic Qualifiers: Diabetes mellitus complication status: without complication Diabetes mellitus residential insulin use: unspecified refractory repairer insulin use status Qualified Code(s): E11.9 - Type 2 diabetes mellitus without complications (6) HTN (hypertension) Current Visit: Yes Status: Chronic Qualifiers: Hypertension type: essential hypertension Qualified Code(s): I10 - Essential (primary) hypertension (7) Loose total knee arthroplasty Current Visit: Yes Status: Chronic Qualifiers: Encounter type: subsequent encounter Qualified Code(s): T84.038D - Mechanical loosening of other internal prosthetic joint, subsequent encounter; Z96.659 - Presence of unspecified artificial knee joint; Z96.659 - Presence of unspecified artificial knee joint (8) Arthritis of knee, right Current Visit: Yes Status: Chronic Subjective Interval history: Patient was seen this morning doing well without complaints. Afebrile vital signs stable. Operative extremity: Neurovascularly intact Dressing clean dry and intact Calves nontender Assessment and plan: Continue with postoperative care Patient discharge held secondary to uncontrolled hypertension controlled by medical team discharge stable condition Objective Vital signs: Vital Signs Temp Pulse Resp BP Pulse Ox 04/26/17 07:34 16 96 04/26/17 06:57 98.0 F 105 18 157/88 96 04/26/17 05:04 97.5 F L 100 18 175/87 94 04/26/17 00:15 98.0 F 89 16 162/88 97 04/25/17 20:16 98.5 F 95 16 163/90 92 04/25/17 16:41 98.6 F 110 14 162/86 93 04/25/17 15:08 16 97 04/25/17 14:49 98.1 F 107 20 163/89 96 04/25/17 12:55 98.2 F 100 168/91 97 04/25/17 10:59 97.5 F L 98 18 145/82 97 04/25/17 10:40 97.8 F 112 20 118/73 98 04/25/17 09:52 23 180/102 97 04/25/17 09:35 98.7 F 85 24 192/117 97 Intake and Output 04/25/17 04/26/17 04/26/17 23:59 07:59 15:59 Intake Total 1100 / 1100 300 / 300 Output Total 850 / 850 800 / 800 Balance 250 / 250 -500 / -500 Intake: IV Fluids 1000 / 1000 Lactated Ringers 1,000 ML @ 75 1000 / 1000 mls/hr IVC .[id number] FRANCIS Rx#: [id number] Oral 100 / 100 300 / 300 Output: Urine 850 / 850 800 / 800 Other: Meal Dinner Percent of Meal Consumed 5% # Voids 1 4 Blood Glucose* 155 154 - Labs CBC & BMP: 04/25/17 01:45 04/25/17 01:45 Labs: Abnormal lab results Hgb 10.2 g/dL (11.5-15.4) L 04/25/17 01:45 Hct 32.8 % (35.3-44.9) L 04/25/17 01:45 BUN 26 mg/dL (8-23) H 04/25/17 01:45 Est GFR (Non-Af Amer) 52 (> 60) L 04/25/17 01:45 Glucose 164 mg/dL (70-105) H 04/25/17 01:45 POC Glucose 155 (58-89) H 04/25/17 20:21 - VTE Documentation of Mechanical Device: Venous foot pump, device Consult Discharge Plan - Plan Referrals: Adam Evans CNP [Primary Care Provider] -
[2017-04-26] MEDS ORDERED: predniSONE 20 MG TABLET PO SCH (11:00)
[2017-04-26 11:43] VITALS: BP 160/88
[2017-04-26] MEDS ORDERED: hydrALAZINE 25 MG TABLET PO SCH (12:00)
[2017-04-26] MEDS ORDERED: FLUARIX QUAD 2017-18 36MOS UP/PF 0.5 ML SYRINGE IM ONE (13:32)
--- NOTE | 2017-04-26 16:47 | Event Note ---
Date of Encounter: 04/26/17 Time of Encounter: 13:12 PCR - POD#3. Patient seen at bedside. Labs reviewed. Pain control: adequate Participating in PT. All questions and concerns addressed. Educated on use of incentive spirometer. Encouraged ambulation and proper hydration. Patient educated on post-operative restrictions and post-operative care. Addressed: Hosp consult: HTN - started Hydralazine Gout - started Prednisone Discharge plan: D/C home with HH 04/26/17 Need PCP folllow up for HTN
--- NOTE | 2017-04-27 10:20 | Electrocardiograph Report ---
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
--- NOTE | 2017-04-27 12:08 | Physician Discharge Referral ---
Home Health/Hosp Referral Info Transfer to: Home Health Attending Provider: Provider in Charge Post Discharge: PCP - Diagnosis (1) Status post total knee replacement, right Priority: Primary Status: Acute (2) Arthritis of knee, right Priority: Primary Status: Chronic (3) Chronic pain Status: Chronic (4) CKD (chronic kidney disease) stage 3, GFR 30-59 ml/min Status: Chronic (5) COPD (chronic obstructive pulmonary disease) Status: Chronic (6) DMII (diabetes mellitus, type 2) Status: Chronic (7) HTN (hypertension) Status: Chronic (8) Obesity Status: Chronic - Respiratory Orders None Smoking Cessation: Smoking cessation has been advised. For more information, call the [employer] Tobacco Quit Line at 1-258-MLAZ-NOW. - Diet/Nutrition Diet/Nutrition Orders: Regular - Activity Activity Orders: Up ad laura, Ambulate, Walker - Services Needed Following services are medically necessary services: Nursing, Home Health Aide, Physical Therapy, Occupational Therapy Home Care Orders: Knee Continuity: Opsite dressing, leave intact until first post-operative visit. If dressing becomes >50% saturated, contact office, remove dressing and place appropriate dressing in its place. Do not allow for dressing to get wet. Zipline/Javier in place, plan to remove at post-operative day #14-16. Total Joint Precautions x 6 weeks Apply cold therapy wrap 3-6x/day for 20 minutes at a time. Encourage ambulation throughout the day Use Incentive spirometer 10x/hour. Elevate affected extremity above heart as tolerated. Brace: Wear knee immobilizer at night x 2 weeks.~ NEEDS F/UP WITH PCP TO ADDRESS HYPERTENSION AND GOUT - Transfer Medications Prescriptions: hydrALAZINE [HydrALAZINE] 25 mg PO Q6HR #120 tablet predniSONE [PredniSONE] 20 mg PO DAILY #4 tablet Home Medications: OxyCODONE Immed Rel [Roxicodone 5 MG] 5 mg PO Q6HR PRN 7 Days #28 tablet [Rx] Albuterol Sulfate [Albuterol Inhaler] 2 puff IH Q4-6H PRN 04/23/17 [History] Aspirin Enteric Coated [Aspirin EC] 325 mg PO BID #20 tablet. 04/23/17 [Rx] Calcium Carbonate [Calcium] 600 mg PO DAILY 04/23/17 [History] Cholecalciferol (Vitamin D3) [Vitamin D3] 2,000 unit PO DAILY 04/23/17 [History] Fluticasone Propionate Nasal [Flonase] 2 spr NS DAILY PRN 04/23/17 [History] Montelukast [Singulair] 10 mg PO HS 04/23/17 [History] [place]-3S/Dha/Epa/Fish Oil [Fish Oil 1,200 mg Softgel] 1 cap PO DAILY 04/23/17 [ History] OxyCODONE/APAP 10/325 [Percocet 10/325 MG] 1 tab PO Q8H PRN 04/23/17 [History] Pantoprazole Sodium [Protonix] 40 mg PO DAILY 04/23/17 [History] Psyllium [Metamucil Fiber Singles Packet] 1 pack PO DAILY 04/23/17 [History] Sertraline [Zoloft] 100 mg PO DAILY 04/23/17 [History] Simvastatin [Zocor] 40 mg PO DAILY 04/23/17 [History] Tiotropium [Spiriva] 18 mcg PO DAILY 04/23/17 [History] Venlafaxine HCl [Venlafaxine HCl ER] 75 mg PO DAILY 04/23/17 [History] Vitamin B Complex Vit C No.4 [Super B Complex] 150 mg PO DAILY 04/23/17 [History ] diazePAM [Valium] 5 mg PO BID PRN 04/23/17 [History] hydrALAZINE [HydrALAZINE] 25 mg PO Q6HR #120 tablet 04/26/17 [Rx] predniSONE [PredniSONE] 20 mg PO DAILY #4 tablet 04/26/17 [Rx] Allergies/Adverse Reactions: 3 Allergy/AdvReac Type Severity Reaction Status Date / Time cephalexin Allergy Rash Verified 04/23/17 10:10 Penicillins [PCN] Allergy Rash Verified 04/23/17 10:10 Sulfa (Sulfonamide Allergy Rash Verified 04/23/17 10:10 Antibiotics) hydrocodone [From Vicodin] AdvReac Hallucinati Verified 04/23/17 10:10 ng Varenicline [From Chantix] AdvReac Gastrointestinal Verified 04/23/17 10:10 Upset Certification: Further, I certify that my clinical findings support that this patient is homebound (i.e. absences from home require considerable and taxing effort and are for medical reasons or holiness services or infrequently or short duration when for other reasons) because: Homebound Reason: Patient requires assistance of a person or device to safely leave home, Post-surgery restriction and or conditions limit ability to leave home Attestation: My signature below is to certify that this patient is under my care and that I, or nurse practitioner, or a physician's medication assistant working with me, has a face-to -face encounter with this patient.
== END 2017-04-26 16:15 | disposition home health service (06) | DRG 467 ==
LOC: SAMDAY 09:24 → 3NENU 13:20
PROVIDERS: ADMIT Orthopaedic Surgery; ATTEND Orthopaedic Surgery

== ENCOUNTER 2021-07-28 22:37 | Inpatient (IN) ==
[2021-07-29] MEDS ORDERED: Naloxone 0.4 MG/ML INJ IVP PRN (03:39)
[2021-07-29] MEDS ORDERED: Ondansetron ODT 4 MG TAB.RAPDIS SL PRN (03:39)
[2021-07-29] MEDS ORDERED: Melatonin 3 MG TABLET PO PRN (03:39)
[2021-07-29 05:14] LABS: Bilirubin,Urine Negative (Negative); Blood,Urine Negative (Negative); Clarity,Urine Clear (Clear); Color,Urine Colorless (Yellow); Glucose,Urine (UA) Normal (Normal); Ketones,Urine Negative (Negative); Leukocyte Esterase,Urine Negative (Negative); Nitrite,Urine Negative (Negative); Protein,Urine Negative (Neg-Trace); Specific Gravity,Urine 1.008 (1.010-1.025); Urobilinogen,Urine Normal (Normal)
[2021-07-29 05:37] LABS: Basophils % 0.2 %; Eosinophils # 0.5 K/mcL (0.0-0.6); Eosinophils % 6.3 %; Hematocrit 25.7 % (35.3-44.9); Hemoglobin 8.1 g/dL (11.5-15.4); Immature Granulocytes % 0.6 % (0-4); Lymphocytes # 1.4 K/mcL (0.6-4.6); Lymphocytes % 17.1 %; Mean Corpuscular HGB Conc 31.5 g/dL (31.6-35.5); Mean Corpuscular Hemoglobin 27.2 pg (28.0-33.3); Mean Corpuscular Volume 86.2 fL (83.0-100.0); Monocytes # 0.5 K/mcL (0.0-1.3); Monocytes % 5.9 %; Neutrophils # 5.7 K/mcL (1.6-8.9); Platelet Count 294 K/mcL (140-400); Red Blood Count 2.98 M/mcL (3.82-4.97); Red Cell Distribution Width 15.2 % (11.5-14.5); Segmented Neutrophils % 69.9 %; White Blood Count 8.2 K/mcL (4.3-11.1)
[2021-07-29] MEDS: *HR* OxyCODONE/APAP 5/325 TABLET PO PRN ×2 (06:04→20:00)
[2021-07-29 06:11] LABS: Albumin 4.3 g/dL (3.5-5.7); Albumin/Globulin Ratio 1.4 (1.1-2.2); Bilirubin,Total 0.3 mg/dL (0.3-1.0); Calcium 10.2 mg/dL (8.6-10.3); Globulin 3.1 g/dL (2.4-3.5); Magnesium 2.4 mg/dL (1.6-2.6); Phosphorous 4.7 mg/dL (2.7-4.5); Potassium 5.1 mEq/L (3.5-5.1); Total Protein 7.4 g/dL (6.4-8.9)
[2021-07-29 06:26] LABS: Folate > 22.3 ng/mL (3.0-16.0); Vitamin B12 473 pg/mL (250-1100)
[2021-07-29] MEDS ORDERED: NON-FORMULARY MEDICATION 1 EACH EACH (Omega-3 Fatty Acids [Fish Oil] 300 MG Capsule) PO SCH (09:00)
[2021-07-29] MEDS ORDERED: amLODIPine 5 MG TABLET PO SCH (09:00)
[2021-07-29 09:28] LABS: Uric Acid 5.7 mg/dL (2.3-7.6)
[2021-07-29] MEDS: Tiotropium 10 INH DOSE IH SCH (10:08)
[2021-07-29] MEDS: Budesonide/Formoterol 80/4.5 1 PUFF INH IH SCH ×2 (10:10→20:44)
[2021-07-29 13:40] LABS: Sodium, Urine 53.1 mEq/L
[2021-07-29] MEDS ORDERED: Ipratropium/Albuterol Neb 3 ML IH PRN (14:41)
[2021-07-29] MEDS ORDERED: ONDANSETRON HCL 4 MG PO PRN (14:41)
[2021-07-29] MEDS: carvediloL 6.25 MG TABLET PO SCH (19:59)
[2021-07-29] MEDS ORDERED: EZETIMIBE SIMVASTATIN PO SCH (21:00)
[2021-07-30 02:00] LABS: Basophils % 0.5 %; Eosinophils # 0.3 K/mcL (0.0-0.6); Eosinophils % 5.1 %; Hemoglobin 8.4 g/dL (11.5-15.4); Immature Granulocytes % 1.4 % (0-4); Lymphocytes # 1.2 K/mcL (0.6-4.6); Lymphocytes % 18.4 %; Mean Corpuscular HGB Conc 31.1 g/dL (31.6-35.5); Mean Corpuscular Hemoglobin 27.3 pg (28.0-33.3); Mean Corpuscular Volume 87.7 fL (83.0-100.0); Mean Platelet Volume 9.7 fL (9.4-12.4); Monocytes # 0.4 K/mcL (0.0-1.3); Monocytes % 6.5 %; Neutrophils # 4.3 K/mcL (1.6-8.9); Platelet Count 304 K/mcL (140-400); Red Blood Count 3.08 M/mcL (3.82-4.97); Red Cell Distribution Width 15.3 % (11.5-14.5); Segmented Neutrophils % 68.1 %; White Blood Count 6.3 K/mcL (4.3-11.1)
[2021-07-30 02:09] LABS: Calcium 10.1 mg/dL (8.6-10.3)
[2021-07-30] MEDS: *HR* OxyCODONE/APAP 5/325 TABLET PO PRN (03:39)
[2021-07-30] MEDS ORDERED: polyethylene glycoL 3350 17 GM POWD.PACK PO PRN (03:51)
[2021-07-30] MEDS: Budesonide/Formoterol 80/4.5 1 PUFF INH IH SCH (07:30)
[2021-07-30] MEDS: Tiotropium 10 INH DOSE IH SCH (07:30)
[2021-07-30 07:35] VITALS: O2SAT 92
[2021-07-30] MEDS: carvediloL 6.25 MG TABLET PO SCH (08:11)
[2021-07-30] MEDS ORDERED: NIFEdipine XL (24 HR) 60 MG TAB.ER.24 PO SCH (09:00)
[2021-07-30] MEDS ORDERED: Cholecalciferol (D-3) 1,000 UNIT (25MCG) TABLET PO SCH (09:00)
[2021-07-30] MEDS ORDERED: NIFEdipine XL (24 HR) 30 MG TAB.ER.24 PO SCH (09:00)
[2021-07-30 11:06] VITALS: BP 153/84; PULSE 62; TEMP 98.1
[2021-07-30] MEDS ORDERED: hydrALAZINE 25 MG TABLET PO SCH (21:00)
== END 2021-07-30 13:06 | disposition home or self-care (01) | DRG 683 ==
LOC: 2NNU → SUATTDRO 07-29 13:21 → 2ANU 07-29 14:54
PROVIDERS: ADMIT Internal Medicine; ATTEND General Practice